=== PATIENT | female | born 1990 | race Caucasian/White ===

== ENCOUNTER → 2017-08-24 | Outpatient (CLI) | payer MEDICARE, OTHER ==
[2016-04-15 22:50] VITALS: BP 174/88
[~2017-08-24] MED LIST: ACET325T9 PO; CALC667C6 PO; DILT240C66 PO; FEXO180T16 PO; FURO40TA4 PO; HYDR-2869 PO; HYDR25TA9 PO; INSU100I13 SQ; INSU100V SQ; LABE100T3 PO; LAMO100T PO; ONDA4TAB10 PO; SODI650T PO; [UNRECOGNIZED DRUG - OTHER]
--- NOTE | 2017-08-24 13:07 | RAD ---
Complete abdominal ultrasound 08/24/2017 Indication: Liver mass. Spot megaly. Comparison study: None available. Discussion: Ultrasound evaluation of the abdomen was performed. Static images are submitted to PACS. Exam is technically limited secondary to patient body habitus. The pancreas is poorly visualized. The aorta and IVC are poorly visualized. The liver is only partially visualized. Superior portions of liver nonvisualized. Portal venous flow appears to be normal direction. The visualized common bile duct is nondilated at 3 mm. The liver is diffusely hyperechoic suggesting hepatic steatosis. The liver is enlarged. Measures at least 21 cm longitudinally. The right kidney is unremarkable in appearance measuring 10.7 cm in length. Left kidney is grossly unremarkable in appearance measuring 11.5 cm in length. The spleen is enlarged measuring 13.2 cm in length. Impression: 1. Hepatomegaly with splenomegaly 2. Probable hepatic steatosis 3. A focal liver lesion is not seen, though evaluation of the liver is significantly limited as described. If concern persists a hepatic protocol MRI may be helpful for further evaluation.
== END | disposition home or self-care (01) ==
LOC: US 09:15
PROVIDERS: ATTEND Internal Medicine Gastroenterology
DX: R16.0 Hepatomegaly, not elsewhere classified (principal); R16.1 Splenomegaly, not elsewhere classified; Z90.49 Acquired absence of other specified parts of digestive tract
CPT/HCPCS: 76700

== ENCOUNTER → 2018-12-01 | Outpatient (CLI) | payer MEDICARE, OTHER ==
[2016-04-15 22:50] VITALS: BP 174/88
[~2018-12-01] MED LIST changes: +HYDR-2145 PO; -HYDR25TA9 PO; -LABE100T3 PO; +LABE100T5 PO
== END | disposition home or self-care (01) ==
LOC: SURG 11:22
PROVIDERS: ATTEND Anesthesiology Pain Medicine
DX: R10.10 Upper abdominal pain, unspecified (principal); G89.4 Chronic pain syndrome; F11.90 Opioid use, unspecified, uncomplicated; E11.9 Type 2 diabetes mellitus without complications; M25.511 Pain in right shoulder; Z90.49 Acquired absence of other specified parts of digestive tract; Z79.899 Other long term (current) drug therapy
CPT/HCPCS: 99214

== ENCOUNTER → 2019-03-02 | Outpatient (CLI) | payer MEDICARE, OTHER ==
[2016-04-15 22:50] VITALS: BP 174/88
== END | disposition home or self-care (01) ==
LOC: SURG 12:51
PROVIDERS: ATTEND Anesthesiology Pain Medicine
DX: G89.4 Chronic pain syndrome (principal); R10.10 Upper abdominal pain, unspecified; M25.511 Pain in right shoulder; M25.512 Pain in left shoulder; F11.90 Opioid use, unspecified, uncomplicated; E11.9 Type 2 diabetes mellitus without complications; Z99.2 Dependence on renal dialysis; Z90.49 Acquired absence of other specified parts of digestive tract; Z79.899 Other long term (current) drug therapy
CPT/HCPCS: 99214

== ENCOUNTER → 2019-07-24 | Outpatient (CLI) | payer MEDICARE, OTHER ==
[2016-04-15 22:50] VITALS: BP 174/88
[~2019-07-24] MED LIST changes: -LAMO100T PO; +LAMO100T8 PO
--- NOTE | 2019-07-24 12:34 | CARD ---
MR#: [id number] Date of Study: 07/24/2019 Ordering Physician: ANA M DAVIDSON, Referring Physician: ANA M DAVIDSON, Tech: Annie Ayers APPROVED REPORT EXAM: Two-dimensional and M-mode echocardiogram with Doppler and color Doppler. Other Information Quality : Average INDICATION LV Function:Diastolic RISK FACTORS Hypertension Hyperlipidemia 2D DIMENSIONS RVDd3.0 (2.9-3.5cm)Left Atrium(2D)3.8 (1.6-4.0cm) IVSd0.7 (0.7-1.1cm)Aortic Root(2D)2.4 (2.0-3.7cm) LVDd4.0 (3.9-5.9cm)LVOT Diameter2.0 (1.8-2.4cm) PWd0.8 (0.7-1.1cm)LVDs3.3 (2.5-4.0cm) FS (%) 18.3 %SV27.4 ml LVEF(%)38.5 (>50%) Aortic Valve AoV Peak Leonel.151.3cm/sAoV VTI33.3cm AO Peak GR.9.2mmHgLVOT Peak Leonel.109.8cm/s LVOT VTI 26.58cmAO Mean GR.5mmHg COLT (VMAX)2.05zq6DLO (VTI)2.59cm2 Mitral Valve MV E Pivceuqa538.5cm/sMV DECEL VABY655wg MV A Jjidooiv73.0cm/sE/A Ratio1.5 Pulmonary Valve PV Peak Qhbvmocu999.6cm/sPV Peak Grad.5mmHg Tricuspid Valve TR P. Qcjndmxv153fq/sRAP AFLDCIFA2dlDy TR Peak Gr.88ddQvQMHU03ipDg Pulmonary Vein S1 Tnggjfpd22.7cm/sD2 Ntgsaurt13.9cm/s LEFT VENTRICLE The left ventricle is normal size. There is normal left ventricular wall thickness. The left ventricu lar systolic function is normal and the ejection fraction is within normal range. EF 55% There is nor mal LV segmental wall motion. The left ventricular diastolic function and filling is normal for age. RIGHT VENTRICLE The right ventricle is normal size. There is normal right ventricular wall thickness. The right ventr icular systolic function is normal. ATRIA The left atrium is borderline dilated. The right atrium size is normal. The interatrial septum is int act with no evidence for an atrial septal defect or patent foramen ovale as noted on 2-D or Doppler i maging. AORTIC VALVE The aortic valve is normal in structure and function. Doppler and Color Flow revealed no significant aortic regurgitation. There is no significant aortic valvular stenosis. MITRAL VALVE The mitral valve is normal in structure and function. There is no evidence of mitral valve prolapse. There is no mitral valve stenosis. Doppler and Color-flow revealed trace mild mitral regurgitation. TRICUSPID VALVE The tricuspid valve is normal in structure and function. Doppler and Color Flow revealed trace tricus pid regurgitation with an estimated PAP of 41 mmHg. There is no tricuspid valve prolapse or vegetatio n. There is no tricuspid valve stenosis. PULMONIC VALVE The pulmonary valve is normal in structure and function. Doppler and Color Flow revealed trace pulmon ic valvular regurgitation. There is no pulmonic valvular stenosis. GREAT VESSELS The aortic root is normal in size. The IVC is normal in size and collapses >50% with inspiration. PERICARDIAL EFFUSION There is no evidence of significant pericardial effusion. Critical Notification Critical Value: No <Conclusion> The left ventricular systolic function is normal and the ejection fraction is within normal range. EF 55% There is normal LV segmental wall motion. Signed by : Ana M Davidson, Electronically Approved : 07/24/2019 12:34:00
== END | disposition home or self-care (01) ==
LOC: ECHO 08:51
PROVIDERS: ATTEND Internal Medicine Cardiovascular Disease
DX: I34.0 Nonrheumatic mitral (valve) insufficiency (principal); I11.0 Hypertensive heart disease with heart failure; I50.30 Unspecified diastolic (congestive) heart failure
CPT/HCPCS: 93306

== ENCOUNTER 2019-10-06 00:28 | Emergency (ER) | payer OTHER, MEDICARE ==
[~2019-10-06] VITALS: Ht 154.9 cm; Wt 67.2 kg
[2019-10-06 00:51] VITALS: BP 153/82
[2019-10-06] MEDS ORDERED: ORPH-16 PO (01:10)
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
[2019-10-06] MEDS ORDERED: ORPHENADRINE CITRATE 60 MG/2 ML VIAL. IM ONE (01:30)
[2019-10-06] MEDS ORDERED: DEXAMETHASONE 4 MG TABLET PO ONE (01:30)
== END 2019-10-06 01:20 | disposition home or self-care (01) ==
LOC: ER 00:28
DX: S30.1XXA Contusion of abdominal wall, initial encounter (principal); R51 Headache; M54.2 Cervicalgia; I12.9 Hypertensive chronic kidney disease with stage 1 through stage 4 chronic kidney disease, or unspecified chronic kidney disease; N18.9 Chronic kidney disease, unspecified; E11.22 Type 2 diabetes mellitus with diabetic chronic kidney disease; Z90.49 Acquired absence of other specified parts of digestive tract; Z98.84 Bariatric surgery status; Z90.710 Acquired absence of both cervix and uterus; Z87.891 Personal history of nicotine dependence; V43.52XA Car driver injured in collision with other type car in traffic accident, initial encounter; Y93.I9 Activity, other involving external motion; Y92.488 Other paved roadways as the place of occurrence of the external cause; Y99.8 Other external cause status
CPT/HCPCS: 96372; 99283; J2360; J8540

== ENCOUNTER → 2019-11-02 | Outpatient (CLI) | payer MEDICARE, OTHER ==
[~2019-11-02] MED LIST changes: +ORPH-16 PO
[2019-11-02 10:42] VITALS: BP 151/78
== END | disposition home or self-care (01) ==
LOC: SURG 10:30
PROVIDERS: ATTEND Anesthesiology Pain Medicine
DX: G89.4 Chronic pain syndrome (principal); R10.9 Unspecified abdominal pain; M25.519 Pain in unspecified shoulder; M25.512 Pain in left shoulder; R10.10 Upper abdominal pain, unspecified; M25.511 Pain in right shoulder; F11.90 Opioid use, unspecified, uncomplicated
CPT/HCPCS: 99214; G0463

== ENCOUNTER 2020-04-02 20:02 | Emergency (ER) | payer MEDICARE, OTHER ==
[~2020-04-02] VITALS: Ht 154.9 cm; Wt 74.1 kg
[2020-04-02 21:30] LABS: BASO % 1 % (0-3); EOS # 0.1 x10^3/uL (0.0-0.7); EOS % 1 % (0-3); HEMOGLOBIN 10.9 g/dL (12.0-15.5); LYMPH # 1.7 x10^3/uL (1.0-4.8); LYMPH % 32 % (24-48); MEAN CORPUSCULAR HEMOGLOBIN 31 pg (25-35); MEAN CORPUSCULAR HGB CONC 34 g/dL (31-37); MEAN CORPUSCULAR VOLUME 91 fL (79-100); MONO # 0.3 x10^3/uL (0.0-1.1); MONO % 5 % (0-9); NEUT # 3.3 x10^3uL (1.8-7.7); NEUT % 60 % (31-73); PLATELET COUNT 207 x10^3/uL (140-400); RED BLOOD COUNT 3.52 x10^6/uL (3.50-5.40); RED CELL DISTRIBUTION WIDTH 12.8 % (11.5-14.5); WHITE BLOOD COUNT 5.4 x10^3/uL (4.0-11.0)
[2020-04-02 21:37] LABS: CALCIUM 6.7 mg/dL (8.5-10.1); CREATININE 6.6 mg/dL (0.6-1.0); GFR 7.4; POTASSIUM 3.5 mmol/L (3.5-5.1)
[2020-04-02 21:45] LABS: ALBUMIN 2.2 g/dL (3.4-5.0); ALBUMIN/GLOBULIN RATIO 0.7 (1.0-1.7); TOTAL BILIRUBIN 0.2 mg/dL (0.2-1.0); TOTAL PROTEIN 5.5 g/dL (6.4-8.2)
--- NOTE | 2020-04-02 21:47 | PHYS DOC ---
Past History Past Medical History: Bipolar, Diabetes, Hypertension, Kidney Infection, Renal Failure Additional Past Medical Histor: stg 5 renal failure Past Surgical History: Cholecystectomy, Gastric Bypass, Hysterectomy Additional Past Surgical Histo: bilateral shoulder repair, Smoking: Quit Greater Than 1 Year Alcohol Use: None Drug Use: None Adult General Chief Complaint Chief Complaint: ABDOMINAL PAIN HPI HPI Patient is a 29 year old female who presents with who presents to the emergency room with mid to right lower abdominal pain. Patient states that she noticed this pea like structure in her abdominal wall and states that she had some pain around this area. She states the pain is more to the center of her abdomen than right over that area. She has had some low-grade fevers. She has chronic nausea but is unchanged. She is not had any vomiting, diarrhea, constipation. She is on peritoneal dialysis which she is not had any difficulty with. Review of Systems Review of Systems General: Denies fever, chills, sweats, fatigue Eyes: Denies drainage, blurred vision, eye redness HENT: Denies rhinorrhea, sore throat, earache Respiratory: Denies cough, shortness of breath, wheezing Cardiac: Denies edema, palpitations, chest pain GI: Reports nausea, abdominal pain MSK: Denies back pain, neck pain Skin: Denies rash, jaundice Neuro: Denies headache, dizziness Psychiatric: Denies SI/HI Current Medications Current Medications Current Medications Medications (Trade) Dose Ordered Sig/Bisi Start Time Stop Time Status Last Admin Dose Admin Iohexol (Omnipaque 240 Mg/ml) 30 ml 1X ONCE 04/02/20 20:45 04/02/20 20:46 DC Allergies Allergies Allergies Coded Allergies Type Severity Reaction Last Updated Verified adhesive Allergy Unknown 11/02/19 Yes lurasidone Allergy Unknown 11/02/19 Yes zolpidem Allergy Unknown 11/02/19 Yes Physical Exam Physical Exam General: Awake, alert, NAD. Well Nourished, well hydrated. Cooperative HEENT: Atraumatic, EOMI, PERRL, airway patent, moist oral mucosa Neck: Supple, trachea midline Respiratory: CTA bilaterally, normal effort, no wheezing/crackles CV: RRR, no murmur, cap refill <2 GI: Soft, nondistended, peritoneal dialysis cath in place on the L, mid lower/RLQ tenderness, small 1 cm cyst like structure in R abdominal wall. MSK: No obvious deformities Skin: Warm, dry, intact Neuro: A&O x3, speech NL, sensory and motor grossly intact, no focal deficits Psych: Normal affect, normal mood, not suicidal or homicidal Current Patient Data Lab Results Laboratory Tests Test 04/02/20 21:10 White Blood Count 5.4 x10^3/uL (4.0-11.0) Red Blood Count 3.52 x10^6/uL (3.50-5.40) Hemoglobin 10.9 g/dL (12.0-15.5) L Hematocrit 32.0 % (36.0-47.0) L Mean Corpuscular Volume 91 fL (79-100) Mean Corpuscular Hemoglobin 31 pg (25-35) Mean Corpuscular Hemoglobin Concent 34 g/dL (31-37) Red Cell Distribution Width 12.8 % (11.5-14.5) Platelet Count 207 x10^3/uL (140-400) Neutrophils (%) (Auto) 60 % (31-73) Lymphocytes (%) (Auto) 32 % (24-48) Monocytes (%) (Auto) 5 % (0-9) Eosinophils (%) (Auto) 1 % (0-3) Basophils (%) (Auto) 1 % (0-3) Neutrophils # (Auto) 3.3 x10^3uL (1.8-7.7) Lymphocytes # (Auto) 1.7 x10^3/uL (1.0-4.8) Monocytes # (Auto) 0.3 x10^3/uL (0.0-1.1) Eosinophils # (Auto) 0.1 x10^3/uL (0.0-0.7) Basophils # (Auto) 0.0 x10^3/uL (0.0-0.2) EKG EKG [] Radiology/Procedures Radiology/Procedures [] Course & Med Decision Making Course & Med Decision Making Pertinent Labs and Imaging studies reviewed. (See chart for details) Patient is a 29-year-old female who presents to the emergency room with lower abdominal pain. Patient does not have signs of peritonitis on exam and does not need fluid tested at this time. It is unclear whether the cystlike structure is what is causing her pain. It feels benign on exam and is easily movable. CT abdomen pelvis and basic labs will be ordered to evaluate for the cause of her pathology. Dragon Disclaimer Dragon Disclaimer This electronic medical record was generated, in whole or in part, using a voice recognition dictation system. Departure Departure: Impression: Primary Impression: Abdominal pain Disposition: HOME/RESIDENCE PRIOR TO ADM Condition: STABLE Referrals: SUPRIYA MATHEW (PCP) Patient Instructions: Abdominal Pain Scripts Cephalexin (KEFLEX) 500 Mg Capsule 1 CAP PO BID for UTI for 7 Days, #14 CAP 0 Refills Prov: WALTER CONNELLY MD 04/02/20 Justification of Admission: Justification of Admission: Justification of Admission Dx: No WALTER CONNELLY MD Apr 02, 2020 21:47
[2020-04-02] MEDS: IOHEXOL 240 MG/ML 50ML VIAL. PO ONE (21:54)
--- NOTE | 2020-04-02 22:14 | RAD ---
Exam: CT of abdomen and pelvis without contrast INDICATION: Abdominal pain with right-sided palpable abdominal mass TECHNIQUE: Sequential axial images through the abdomen and pelvis obtained without IV contrast. Sagittal and coronal reformatted images were reconstructed from the axial data and reviewed. Comparisons: None FINDINGS: Heart size is normal. No pericardial effusion. Visualized lung bases are clear. No pleural effusion. Evaluation of solid organs limited secondary to noncontrast technique. Liver, pancreas and adrenals are unremarkable. Gallbladder surgically absent. Spleen is enlarged measuring 16.2 cm in long axis. No perinephric inflammation or hydronephrosis. No renal or ureteral calculi. Bladder is decompressed not well evaluated. Uterus is not enlarged. No abnormal adnexal mass. Large and small bowel are unremarkable. Appendix is not identified. Moderate amount of free fluid noted within the abdomen. No free air. No obstruction. There is a peritoneal dialysis catheter seen coiled in the pelvis. Abdominal aorta has a normal course and caliber. No enlarged abdominal lymph nodes are identified. No suspicious osseous lesions or acute fractures. IMPRESSION: 1. Small to moderate amount of free fluid in the abdomen with peritoneal dialysis catheter seen in the pelvis. 2. No evidence for this identified within the abdomen or pelvis. Exposure: One or more of the following in the visualized dose reduction techniques were utilized for this examination: 1. Automated exposure control 2. Adjustment of the MA and/or KV according to patient size 3. Use of iterative of reconstructive technique Electronically signed by: Seda Staples MD (04/02/2020 10:11 PM) [id number]
[2020-04-02 23:10] LABS: CLARITY,URINE HAZY; COLOR,URINE YELLOW
[2020-04-02 23:11] LABS: BACTERIA,URINE FEW /HPF (0-FEW); BILIRUBIN,URINE NEG (NEG); GLUCOSE,URINE 500 mg/dL (NEG); NITRITE,URINE NEG (NEG); RBC,URINE OCC /HPF (0-2); SQUAMOUS EPITHELIAL CELL,UR FEW /LPF; UROBILINOGEN,URINE 0.2 mg/dL (0.2 mg/dL); WBC,URINE 20-40 /HPF (0-4); YEAST,URINE PRESENT /HPF
[2020-04-02] MEDS ORDERED: CEPH-264 PO (23:44)
[2020-04-02] MEDS ORDERED: HEPARIN PF 500 UNIT/5 ML DISP.SYRIN. ONE (23:46)
[2020-04-02 23:50] VITALS: BP 135/79
[2020-04-02] MEDS: HEPARIN PF 500 UNIT/5 ML DISP.SYRIN. IVP ONE (23:50)
== END 2020-04-02 23:55 | disposition home or self-care (01) ==
LOC: ER 20:02
DX: R10.31 Right lower quadrant pain (principal); R11.0 Nausea; F31.9 Bipolar disorder, unspecified; E11.9 Type 2 diabetes mellitus without complications; I10 Essential (primary) hypertension; E11.22 Type 2 diabetes mellitus with diabetic chronic kidney disease; I12.9 Hypertensive chronic kidney disease with stage 1 through stage 4 chronic kidney disease, or unspecified chronic kidney disease; N18.9 Chronic kidney disease, unspecified; Z90.89 Acquired absence of other organs; Z90.710 Acquired absence of both cervix and uterus; Z98.84 Bariatric surgery status; Z87.891 Personal history of nicotine dependence; Z88.8 Allergy status to other drugs, medicaments and biological substances
CPT/HCPCS: 36415; 74176; 80053; 81001; 81025; 85025; 87086; 96374; 99285; Q9966

== ENCOUNTER 2020-07-23 11:15 | Emergency (ER) | payer MEDICARE, OTHER ==
[~2020-07-23] VITALS: Ht 154.9 cm; Wt 73.6 kg
[~2020-07-23 11:15] MED LIST changes: +CEPH-264 PO
[2020-07-23] MEDS ORDERED: IV NORMAL SALINE 500ML 500 ML IV ONE (11:45)
[2020-07-23] MEDS ORDERED: VANCOMYCIN PER PHARMACY MC ONE (11:45)
[2020-07-23] MEDS ORDERED: PIPERACILLIN/TAZOBACTAM 4.5 GM in IV NORMAL SALINE 50ML 50 ML IV ONE (11:45)
--- NOTE | 2020-07-23 11:58 | EKG ---
[address] [address] Test Date: 2020-07-23 Test Time: 11:54:18 Pat Name: ANGÉLICA PEÑALOZA Department: Room: Gender: F Bilingual Hr Generalist: : 1990 Requested By: SYLVIE CASTRO Order Number: [id number] Reading MD: Measurements Intervals Cameron Rate: 111 P: 41 WY: 150 QRS: 60 QRSD: 84 T: 35 QT: 318 QTc: 436 Interpretive Statements SINUS TACHYCARDIA OTHERWISE NORMAL ECG RI6.02 No previous ECG available for comparison
[2020-07-23] MEDS ORDERED: VANCOMYCIN 2 GM in IV NORMAL SALINE 500ML 500 ML IV ONE (12:00)
[2020-07-23] MEDS ORDERED: IOHEXOL 300 MG/ML 75 ML VIAL. IV ONE (12:00)
--- NOTE | 2020-07-23 12:30 | RAD ---
CT HEAD INDICATION: Reason: fall / Spl. Instructions: / History: COMPARISON: 04/15/2016. Exposure: One or more of the following individualized dose reduction techniques were utilized for this examination: 1. Automated exposure control 2. Adjustment of the mA and/or kV according to patient size 3. Use of iterative reconstruction technique TECHNIQUE: 5 mm contiguous axial images were obtained from the skull base to the vertex in both bone and soft tissue algorithm. FINDINGS: No abnormal attenuation within the brain parenchyma. No evidence of acute intracranial hemorrhage. No extra-axial fluid collections. No mass effect or midline shift. Ventricular size is appropriate. Basal cisterns are patent. No fractures identified.Kulkarni-white differentiation is preserved.Globes and orbits are within normal limits. Paranasal sinuses and mastoid air cells are clear. IMPRESSION: No acute intracranial findings. Electronically signed by: Gabriel Cam MD (07/23/2020 12:27 PM) [id number]
--- NOTE | 2020-07-23 12:41 | PHYS DOC ---
Past History Past Medical History: Anxiety, Diabetes, Hypertension, Renal Failure Additional Past Medical Histor: stg 5 renal failure Past Surgical History: Cholecystectomy, Hysterectomy, Other Additional Past Surgical Histo: LEFT CHEST PORT Smoking: Quit Greater Than 1 Year Alcohol Use: None Drug Use: None General Adult EDM: Chief Complaint: HYPOTENSION HPI: HPI: 30-year-old female past medical history of ESRD (PD daily), diabetes) anemia and hyperlipidemia, presents to the ED from [facility] dialysis for concern for hyp otension (pt reports she went there for labs). I spoke with cardiology Dr. Davidson who called me -pt was admitted 1 week ago to [facility] with an unremarkable echo for hypotension. Patient does have a history of orthostatic hypotension. 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 Ulloa who reported her dry weight was 6 kg increased from prior. Patient has a longstanding hi story of hypotension and has been on midodrine. Dr. Davidson recommended considering adrenal insufficiency work-up. In ED patient complains of frequent falls and dizziness. Reports she lives alone and is not anticoagulants. Pt does c/o left sided abdominal pain. Review of Systems: Review of Systems: Constitutional: Denies fever or chills Eyes: Denies change in visual acuity HENT: Denies nasal congestion or sore throat Respiratory: Denies cough or shortness of breath Cardiovascular: Denies chest pain or edema GI: Denies nausea, vomiting, bloody stools or diarrhea : Denies dysuria -carloz minimal urine Musculoskeletal: Denies back pain or joint pain Integument: Denies rash Neurologic: Denies headache, neck stiffness, focal weakness or sensory changes Endocrine: Denies polyuria or polydipsia Lymphatic: Denies swollen glands Psychiatric: Denies depression or anxiety Current Medications: Current Meds: Current Medications Medications (Trade) Dose Ordered Sig/Bisi Start Time Stop Time Status Last Admin Dose Admin Iohexol (Omnipaque 300 Mg/ml) 75 ml 1X ONCE 07/23/20 12:00 07/23/20 12:01 DC 07/23/20 12:36 75 ML Piperacillin Sod/ Tazobactam Sod 4.5 gm/Sodium Chloride 50 ml @ 100 mls/hr 1X ONCE 07/23/20 11:45 07/23/20 12:14 DC Sodium Chloride 500 ml @ 0 mls/hr 1X ONCE 07/23/20 11:45 07/23/20 11:47 DC Vancomycin HCl (Vanco Per Pharmacy) 1 each 1X ONCE 07/23/20 11:45 07/23/20 11:47 DC Vancomycin HCl 2 gm/Sodium Chloride 500 ml @ 250 mls/hr 1X ONCE 07/23/20 12:00 07/23/20 13:59 Allergies: Allergies: Allergies Coded Allergies Type Severity Reaction Last Updated Verified adhesive Allergy Unknown 07/23/20 Yes lurasidone Allergy Unknown 07/23/20 Yes zolpidem Allergy Unknown 07/23/20 Yes Physical Exam: PE: Constitutional: fatuged/weak appearing, hypotensive, afebrile HENT: Normocephalic, atraumatic, Eyes: EOMI, conjunctiva normal, no discharge. [] Neck: Normal range of motion, supple, Cardiovascular: tachcardic, s1/2 intact Lungs & Thorax: Speaking in full sentences, bilateral equal chest rise Abdomen: soft, luq/llq ttp, abdominal bruising-recent sq heparin? Skin: Warm, dry, no erythema, no rash. [] Back: No tenderness, no CVA tenderness. [] Extremities: No tenderness, no cyanosis, no clubbing, ROM intact, no edema. [] Neurologic: normal motor function, normal sensory function, no focal deficits noted. [] Psychologic: Affect normal, judgement normal, mood normal. [] Current Patient Data: Vital Signs: Vital Signs Date Time Temp Pulse Resp B/P (MAP) Pulse Ox O2 Delivery O2 Flow Rate FiO2 07/23/20 11:34 114 13 87/23 (44) 95 Room Air 07/23/20 11:25 98.5 EKG: EKG: Sinus tachycardia 100 bpm, no axis deviation, normal intervals, no T wave inversions, no ST elevations or ST depressions Radiology/Procedures: Radiology/Procedures: IMAGING REPORT Signed PATIENT: ANGÉLICA PEÑALOZA CACCOUNT: [id number] : 1990 LOCATION: ER AGE: 30 SEX: F EXAM STATUS: REG ER ORD. PHYSICIAN: KEARA CASTRO DO REASON: fall PROCEDURE: CT HEAD WO CONTRAST CT HEAD INDICATION: Reason: fall / Spl. Instructions: / History: COMPARISON: 04/15/2016. Exposure: One or more of the following individualized dose reduction techniques were utilized for this examination: 1. Automated exposure control 2. Adjustment of the mA and/or kV according to patient size 3. Use of iterative reconstruction technique TECHNIQUE: 5 mm contiguous axial images were obtained from the skull base to the vertex in both bone and soft tissue algorithm. FINDINGS: No abnormal attenuation within the brain parenchyma. No evidence of acute intracranial hemorrhage. No extra-axial fluid collections. No mass effect or midline shift. Ventricular size is appropriate. Basal cisterns are patent. No fractures identified.Kulkarni-white differentiation is preserved.Globes and orbits are within normal limits. Paranasal sinuses and mastoid air cells are clear. IMPRESSION: No acute intracranial findings. Electronically signed by: Gabriel Cam MD (07/23/2020 12:27 PM) [id number] DICTATED AND SIGNED BY: GABRIEL CAM MD DATE: 07/23/20 1227 CC: KEARA CASTRO DO; SUPRIYA MATHEW ~ IMAGING REPORT Signed PATIENT: ANGÉLICA PEÑALOZAUNT: [id number] : 1990 LOCATION: ER AGE: 30 SEX: F EXAM STATUS: REG ER ORD. PHYSICIAN: KEARA CASTRO DO REASON: HYPOTENSION PROCEDURE: PORTABLE CHEST 1V Single view of the chest. 07/23/2020 11:36 AM Indication: Reason: HYPOTENSION / Spl. Instructions: / History: Comparison: Chest radiograph September 21, 2016 Findings: Lung volumes are low. Left basilar discoid atelectasis noted. There is a left-sided port with tip in the proximal right atrium, possibly augmented decreased depth of inspiration. There is no pneumothorax pleural effusion, or focal infiltrate. No acute osseous changes are identified. IMPRESSION: Low lung volumes there is left basilar discoid atelectasis. No other acute cardiopulmonary process is seen. Electronically signed by: Bib Esteban MD (07/23/2020 12:51 PM) [id number] DICTATED AND SIGNED BY: BIB ESTEBAN MD DATE: 07/23/20 1251 CC: KEARA CASTRO DO; SUPRIYA MATHEW ~ IMAGING REPORT Signed PATIENT: ANGÉLICA PEÑALOZAUNT: [id number] : 1990 LOCATION: ER AGE: 30 SEX: F EXAM STATUS: REG ER ORD. PHYSICIAN: KEARA CASTRO DO REASON: fall PROCEDURE: CT ABD PELV W/ IV CONTRST ONLY CT ABD PELV W/ IV CONTRST ONLY History: fall, pain Comparison: 07/11/2020 Technique: After administration of intravenous contrast, helical CT of the abdomen and pelvis was performed from the lung bases through the ischial tuberosities. Coronal and sagittal reconstructions were obtained. One or more of the following dose reduction techniques were utilized: Automated exposure control (AEC), Adjustment of mA and/or kV according to patient size, Use of iterative reconstruction technique such as ASiR, CT scan done according to ALARA and image gently/image wisely Abdomen Findings: The visualized lung bases are clear. Moderate amount of abdominopelvic free fluid. Peritoneal dialysis catheter in place. Focal fatty infiltration along the falciform ligament. The liver pancreas, and bilateral adrenal glands are otherwise normal. Cholecystectomy. Few small areas of hypoenhancement along the margins of the spleen with linear morphology. No subcapsular hematoma or adjacent high attenuation fluid to suggest active hemorrhage. Symmetric renal enhancement. There is no focal renal mass. There is no hydronephrosis. Postsurgical changes of gastric bypass. Normal caliber large and small bowel. Appendix is normal. There is no mesenteric or retroperitoneal adenopathy. The abdominal aorta is normal in caliber. Atherosclerotic vascular calcifications. Pelvis Findings: Intermediate density fluid within the bladder (45 Hounsfield units). Hysterectomy. There is no pelvic or inguinal adenopathy. There is no acute bony abnormality. IMPRESSION: 1. There are a few small areas of hypoenhancement along the margins of the spleen with linear morphology concerning for splenic lacerations, given history of trauma. No subcapsular hematoma or adjacent high attenuation fluid to suggest active hemorrhage. 2. There is intermediate density fluid within the bladder, nonspecific but may represent blood products. 3. Moderate abdominopelvic low-attenuation free fluid with peritoneal dialysis catheter in place. Electronically signed by: Cindi Jones MD (07/23/2020 1:14 PM) [id number] DICTATED AND SIGNED BY: CINDI JONES MD DATE: 07/23/20 1314 CC: KEARA CASTRO DO; SUPRIYA MATHEW ~ Heart Score: Risk Factors: Risk Factors: DM, Current or recent (<one month) smoker, HTN, HLP, family history of CAD, obesity. Risk Scores: Score 0 - 3: 2.5% MACE over next 6 weeks - Discharge Home Score 4 - 6: 20.3% MACE over next 6 weeks - Admit for Clinical Observation Score 7 - 10: 72.7% MACE over next 6 weeks - Early Invasive Strategies Course & Med Decision Making: Course & Med Decision Making Pertinent Labs and Imaging studies reviewed. (See chart for details) Concern for hypotension in the setting of frequent falls with CT imaging concerning for splenic laceration, no active hemorrhage. Patient received 300 cc of fluid in ED with antibiotics, map now 85. H/H wnl. On repeat abdominal exam, pt with no luq pain. Adrenal labs pending. [facility], accepted by Dr. Foote for further medical management (pt requesting [facility]-both hospitals full due to covid 19 pandemic). I have spoken with the patient and/or caregivers. I have explained the patient's condition, diagnosis and treatment plan based on the information available to me at this time. I have answered the patient's and/or caregivers questions and answered any concerns. The patient and/or caregivers have as good an understanding of the patient's diagnosis, condition and treatment plan as can be expected at this point. The patient has been stabilized within the capability of the emergency department. The patient will be transported for further care and management or will be moved to an observation or inpatient service. I have communicated with the staff or medical practitioner taking over this patient's care. Critical Care: Authorized and Performed by: Keara Castro DO Total critical care time: approximately 45 minutes Due to a high probability of clinically significant, life threatening deterioration, the patient required my highest level of preparedness to intervene emergently and I personally spent this critical care time directly and personally managing the patient. This critical care time included obtaining a history; examining the patient; pulse oximetry; ventilator management if necessary; ordering and review of studies; arranging urgent treatment with development of a management plan; evaluation of patient's response to treatment; frequent reassessment; discussion with patient/family; and, discussions with other providers. This critical care time was performed to assess and manage the high probability of imminent, life-threatening deterioration that could result in multi-organ failure. It was exclusive of separately billable procedures and treating other patients and teaching time. Please see MDM section and the rest of the note for further information on patient assessment and treatment. Dragon Disclaimer: Dragon Disclaimer: This electronic medical record was generated, in whole or in part, using a voice recognition dictation system. Departure Departure: Impression: Primary Impression: Hypotension Additional Impressions: UTI (urinary tract infection) Splenic laceration Disposition: 05 DC/TRF OTHER TYPE INSTITUTI (to [facility]) Admitting Physician: Other (Dr. Foote) Condition: GUARDED Referrals: SUPRIYA MATHEW (PCP) EKARA CASTRO DO Jul 23, 2020 12:41
--- NOTE | 2020-07-23 12:54 | RAD ---
Single view of the chest. 07/23/2020 11:36 AM Indication: Reason: HYPOTENSION / Spl. Instructions: / History: Comparison: Chest radiograph September 21, 2016 Findings: Lung volumes are low. Left basilar discoid atelectasis noted. There is a left-sided port with tip in the proximal right atrium, possibly augmented decreased depth of inspiration. There is no pneumothorax pleural effusion, or focal infiltrate. No acute osseous changes are identified. IMPRESSION: Low lung volumes there is left basilar discoid atelectasis. No other acute cardiopulmonary process is seen. Electronically signed by: Bib Dudley MD (07/23/2020 12:51 PM) [id number]
[2020-07-23 12:58] LABS: BASO # 0.1 x10^3/uL (0.0-0.2); BASO % 1 % (0-3); EOS # 0.1 x10^3/uL (0.0-0.7); EOS % 1 % (0-3); HEMATOCRIT 37.1 % (36.0-47.0); HEMOGLOBIN 12.1 g/dL (12.0-15.5); LYMPH # 1.9 x10^3/uL (1.0-4.8); LYMPH % 17 % (24-48); MEAN CORPUSCULAR HEMOGLOBIN 30 pg (25-35); MEAN CORPUSCULAR HGB CONC 33 g/dL (31-37); MEAN CORPUSCULAR VOLUME 93 fL (79-100); MONO # 0.6 x10^3/uL (0.0-1.1); MONO % 5 % (0-9); NEUT # 8.2 x10^3uL (1.8-7.7); NEUT % 76 % (31-73); PLATELET COUNT 326 x10^3/uL (140-400); RED CELL DISTRIBUTION WIDTH 13.5 % (11.5-14.5); WHITE BLOOD COUNT 10.8 x10^3/uL (4.0-11.0)
[2020-07-23 13:08] LABS: CALCIUM 8.1 mg/dL (8.5-10.1); CREATININE 11.6 mg/dL (0.6-1.0); GFR 3.8; POTASSIUM 4.3 mmol/L (3.5-5.1)
[2020-07-23 13:12] LABS: PREG TEST PT QUAL NEGATIVE (NEG)
[2020-07-23] MEDS ORDERED: IV NORMAL SALINE 50ML 50 ML ONE (13:12)
[2020-07-23] MEDS ORDERED: PIPERACILLIN/TAZOBACTAM 4.5 GM VIAL IV ONE (13:12)
--- NOTE | 2020-07-23 13:17 | RAD ---
CT ABD PELV W/ IV CONTRST ONLY History: fall, pain Comparison: 07/11/2020 Technique: After administration of intravenous contrast, helical CT of the abdomen and pelvis was performed from the lung bases through the ischial tuberosities. Coronal and sagittal reconstructions were obtained. One or more of the following dose reduction techniques were utilized: Automated exposure control (AEC), Adjustment of mA and/or kV according to patient size, Use of iterative reconstruction technique such as ASiR, CT scan done according to ALARA and image gently/image wisely Abdomen Findings: The visualized lung bases are clear. Moderate amount of abdominopelvic free fluid. Peritoneal dialysis catheter in place. Focal fatty infiltration along the falciform ligament. The liver pancreas, and bilateral adrenal glands are otherwise normal. Cholecystectomy. Few small areas of hypoenhancement along the margins of the spleen with linear morphology. No subcapsular hematoma or adjacent high attenuation fluid to suggest active hemorrhage. Symmetric renal enhancement. There is no focal renal mass. There is no hydronephrosis. Postsurgical changes of gastric bypass. Normal caliber large and small bowel. Appendix is normal. There is no mesenteric or retroperitoneal adenopathy. The abdominal aorta is normal in caliber. Atherosclerotic vascular calcifications. Pelvis Findings: Intermediate density fluid within the bladder (45 Hounsfield units). Hysterectomy. There is no pelvic or inguinal adenopathy. There is no acute bony abnormality. IMPRESSION: 1. There are a few small areas of hypoenhancement along the margins of the spleen with linear morphology concerning for splenic lacerations, given history of trauma. No subcapsular hematoma or adjacent high attenuation fluid to suggest active hemorrhage. 2. There is intermediate density fluid within the bladder, nonspecific but may represent blood products. 3. Moderate abdominopelvic low-attenuation free fluid with peritoneal dialysis catheter in place. Electronically signed by: Tomer Siegel MD (07/23/2020 1:14 PM) [id number]
[2020-07-23 13:26] LABS: ALBUMIN 2.2 g/dL (3.4-5.0); ALBUMIN/GLOBULIN RATIO 0.5 (1.0-1.7); TOTAL BILIRUBIN 0.4 mg/dL (0.2-1.0); TOTAL PROTEIN 6.6 g/dL (6.4-8.2)
[2020-07-23 14:18] LABS: AMPHETAMINE/METHAMPHETAMINE NEG (NEG); BARBITURATES NEG (NEG); BENZODIAZEPINES NEG (NEG); CANNABINOIDS NEG (NEG); COCAINE NEG (NEG); METHADONE NEG (NEG); OPIATES POS (NEG); PHENCYCLIDINE NEG (NEG)
[2020-07-23 14:39] LABS: BACTERIA,URINE FEW /HPF (0-FEW); BILIRUBIN,URINE NEG (NEG); CLARITY,URINE HAZY; COLOR,URINE AMBER; GLUCOSE,URINE NEG (NEG); NITRITE,URINE POS (NEG); UROBILINOGEN,URINE 0.2 mg/dL (0.2 mg/dL)
[2020-07-23 14:40] LABS: AMORPHOUS SEDIMENT,UR PRESENT /HPF; SQUAMOUS EPITHELIAL CELL,UR OCC /LPF; YEAST,URINE PRESENT /HPF
[2020-07-23] MEDS ORDERED: ONDANSETRON PF 4 MG/2 ML VIAL. IVP ONE (16:30)
[2020-07-23] MEDS ORDERED: HYDROmorphone PF 1 MG/ML DISP.SYRIN IV/SQ PRN (16:30)
[2020-07-23 18:55] VITALS: BP 146/84
== END 2020-07-23 18:55 | disposition short-term general hospital (02) ==
LOC: ER 11:15
DX: S36.039A Unspecified laceration of spleen, initial encounter (principal); I95.9 Hypotension, unspecified; N39.0 Urinary tract infection, site not specified; E11.22 Type 2 diabetes mellitus with diabetic chronic kidney disease; I12.0 Hypertensive chronic kidney disease with stage 5 chronic kidney disease or end stage renal disease; N18.6 End stage renal disease; Z99.2 Dependence on renal dialysis; Z87.891 Personal history of nicotine dependence; Z86.2 Personal history of diseases of the blood and blood-forming organs and certain disorders involving the immune mechanism; E78.5 Hyperlipidemia, unspecified; Z88.8 Allergy status to other drugs, medicaments and biological substances; W18.39XA Other fall on same level, initial encounter; Y93.89 Activity, other specified; Y92.89 Other specified places as the place of occurrence of the external cause; Y99.8 Other external cause status; Z79.899 Other long term (current) drug therapy
CPT/HCPCS: 36415; 70450; 71045; 74177; 80053; 80307; 81001; 82024; 82533; 82550; 83605; 83690; 84244; 84484; 84703; 85025; 85610; 85730; 87040; 87086; 87106; 93005; 96365; 96366; 96367; 96375; 99285; J1170; J2405; J2543; J3370; J7040; Q9967

== ENCOUNTER 2020-08-05 12:33 | Emergency (ER) | payer MEDICARE, OTHER ==
[~2020-08-05] VITALS: Ht 185.4 cm; Wt 78.0 kg
[2020-08-05 13:52] LABS: CREATININE 11.7 mg/dL (0.6-1.0); GFR 3.8; POTASSIUM 4.3 mmol/L (3.5-5.1)
--- NOTE | 2020-08-05 14:02 | RAD ---
EXAM: CHEST ONE VIEW. HISTORY: Shortness of breath. COMPARISON: 07/23/2020. FINDINGS: A frontal view of the chest is obtained. A left-sided port catheter has its tip in the superior cavoatrial junction. The inspiration is small. There are mild airspace infiltrates in the left upper lobe and both perihilar regions. There is no pneumothorax or pleural effusion. The heart is not enlarged. IMPRESSION: 1. Left upper lobe and perihilar infiltrates. Electronically signed by: Kristen Colon MD (08/05/2020 1:59 PM) [facility]
[2020-08-05 14:04] LABS: ALBUMIN 1.7 g/dL (3.4-5.0); ALBUMIN/GLOBULIN RATIO 0.5 (1.0-1.7); TOTAL BILIRUBIN 0.4 mg/dL (0.2-1.0)
[2020-08-05 14:09] LABS: BASO % 0 % (0-3); EOS % 0 % (0-3); HEMATOCRIT 30.7 % (36.0-47.0); HEMOGLOBIN 9.9 g/dL (12.0-15.5); LYMPH # 0.6 x10^3/uL (1.0-4.8); LYMPH % 11 % (24-48); MEAN CORPUSCULAR HEMOGLOBIN 29 pg (25-35); MEAN CORPUSCULAR HGB CONC 32 g/dL (31-37); MEAN CORPUSCULAR VOLUME 91 fL (79-100); MONO # 0.2 x10^3/uL (0.0-1.1); MONO % 3 % (0-9); NEUT # 4.5 x10^3uL (1.8-7.7); NEUT % 86 % (31-73); PLATELET COUNT 227 x10^3/uL (140-400); RED BLOOD COUNT 3.37 x10^6/uL (3.50-5.40); RED CELL DISTRIBUTION WIDTH 13.5 % (11.5-14.5); WHITE BLOOD COUNT 5.2 x10^3/uL (4.0-11.0)
[2020-08-05] MEDS ORDERED: DEXAMETHASONE SOD PHOS 10 MG/ML VIAL. IV ONE (14:30)
[2020-08-05] MEDS ORDERED: IV NORMAL SALINE 50ML 50 ML ONE (15:12)
[2020-08-05] MEDS ORDERED: cefTRIAXone SODIUM 1 GM VIAL ONE (15:12)
--- NOTE | 2020-08-05 15:45 | PHYS DOC ---
Past History Past Medical History: Anxiety, Diabetes, Hypertension, Renal Failure Additional Past Medical Histor: stg 5 renal failure Past Surgical History: Cholecystectomy, Hysterectomy, Other Additional Past Surgical Histo: LEFT CHEST PORT Smoking: Quit Greater Than 1 Year Alcohol Use: None Drug Use: None Adult General Chief Complaint Chief Complaint: SHORTNESS OF BREATH HPI HPI Patient is a 30-year-old female with past medical history of diabetes and end- stage renal disease who presents to the emergency room after having hypoxia at home. Patient was diagnosed with Covid earlier this week and has spent several days in [place]. She was discharged yesterday. Home health came by today and her pulse ox was 70% while she was up and walking. They called an ambulance to bring her here. Patient states that she feels generally weak and is having a hard time walking. She feels short of breath. She is due for peritoneal dialysis tomorrow. She is having cough, body aches, fevers, chills, sweats. She denies any abdominal symptoms. Review of Systems Review of Systems Complete ROS is negative unless otherwise documented in HPI Current Medications Current Medications Current Medications Medications (Trade) Dose Ordered Sig/Bisi Start Time Stop Time Status Last Admin Dose Admin Ceftriaxone Sodium 1 gm/ Sodium Chloride 50 ml @ 100 mls/hr 1X ONCE 08/05/20 14:15 08/05/20 14:44 DC Ceftriaxone Sodium (Rocephin) 1 gm STK-MED ONCE 08/05/20 15:12 08/05/20 15:13 DC Dexamethasone Sodium Phosphate (Decadron) 10 mg 1X ONCE 08/05/20 14:30 08/05/20 14:31 DC Sodium Chloride 50 ml @ As Directed STK-MED ONCE 08/05/20 15:12 08/05/20 15:12 DC Allergies Allergies Allergies Coded Allergies Type Severity Reaction Last Updated Verified adhesive Allergy Unknown 07/23/20 Yes lurasidone Allergy Unknown 07/23/20 Yes zolpidem Allergy Unknown 07/23/20 Yes Physical Exam Physical Exam General: Awake, alert, ill-appearing HEENT: Atraumatic, EOMI, PERRL, airway patent, moist oral mucosa Neck: Supple, trachea midline Respiratory: Decreased breath sounds bilaterally with diffuse crackles, normal effort CV: Tachycardic, no murmur, cap refill <2 GI: Soft, nondistended, nontender, no masses, peritoneal dialysis catheter in place MSK: No obvious deformities Skin: Warm, dry, intact Neuro: A&O x3, speech NL, sensory and motor grossly intact, no focal deficits Psych: Normal affect, normal mood, not suicidal or homicidal Current Patient Data Vital Signs Vital Signs Date Time Temp Pulse Resp B/P (MAP) Pulse Ox O2 Delivery O2 Flow Rate FiO2 08/05/20 12:35 101.0 104 21 103/58 (73) 90 Room Air Lab Results Laboratory Tests Test 08/05/20 13:05 White Blood Count 5.2 x10^3/uL (4.0-11.0) Red Blood Count 3.37 x10^6/uL (3.50-5.40) L Hemoglobin 9.9 g/dL (12.0-15.5) L Hematocrit 30.7 % (36.0-47.0) L Mean Corpuscular Volume 91 fL (79-100) Mean Corpuscular Hemoglobin 29 pg (25-35) Mean Corpuscular Hemoglobin Concent 32 g/dL (31-37) Red Cell Distribution Width 13.5 % (11.5-14.5) Platelet Count 227 x10^3/uL (140-400) Neutrophils (%) (Auto) 86 % (31-73) H Lymphocytes (%) (Auto) 11 % (24-48) L Monocytes (%) (Auto) 3 % (0-9) Eosinophils (%) (Auto) 0 % (0-3) Basophils (%) (Auto) 0 % (0-3) Neutrophils # (Auto) 4.5 x10^3uL (1.8-7.7) Lymphocytes # (Auto) 0.6 x10^3/uL (1.0-4.8) L Monocytes # (Auto) 0.2 x10^3/uL (0.0-1.1) Eosinophils # (Auto) 0.0 x10^3/uL (0.0-0.7) Basophils # (Auto) 0.0 x10^3/uL (0.0-0.2) Sodium Level 132 mmol/L (136-145) L Potassium Level 4.3 mmol/L (3.5-5.1) Chloride Level 94 mmol/L (98-107) L Carbon Dioxide Level 22 mmol/L (21-32) Anion Gap 16 (6-14) H Blood Urea Nitrogen 64 mg/dL (7-20) H Creatinine 11.7 mg/dL (0.6-1.0) H Estimated GFR (Cockcroft-Gault) 3.8 BUN/Creatinine Ratio 5 (6-20) L Glucose Level 97 mg/dL (70-99) Calcium Level 7.0 mg/dL (8.5-10.1) L Total Bilirubin 0.4 mg/dL (0.2-1.0) Aspartate Amino Transferase (AST) 67 U/L (15-37) H Alanine Aminotransferase (ALT) 78 U/L (14-59) H Alkaline Phosphatase 137 U/L (46-116) H Troponin I Quantitative < 0.017 ng/mL (0-0.055) KC-Nhs-E-Type Natriuretic Peptide 6314 pg/mL (0-124) H Total Protein 5.0 g/dL (6.4-8.2) L Albumin 1.7 g/dL (3.4-5.0) L Albumin/Globulin Ratio 0.5 (1.0-1.7) L EKG EKG [] Radiology/Procedures Radiology/Procedures [] Heart Score Risk Factors: Risk Factors: DM, Current or recent (<one month) smoker, HTN, HLP, family hi story of CAD, obesity. Risk Scores: Risk Factors: DM, Current or recent (<one month) smoker, HTN, HLP, family history of CAD, obesity. Course & Med Decision Making Course & Med Decision Making Pertinent Labs and Imaging studies reviewed. (See chart for details) Patient is 30-year-old female with known coronavirus who presents to the emergency room with hypoxia. Patient is requiring 3 L of oxygen at this time. She appears very comfortable on this at rest. Covid labs were ordered and patient was given Decadron. X-ray does show an infiltrate and patient was started on Rocephin. Patient will need dialysis tomorrow and we are unable to do this here at [facility]. She will need to be transferred out to a place that has nephrology. She has requested [facility] as that is where her vocational rehabilitation technician is. I have discussed the case with [facility] who will admit her for hypoxia with coronavirus. Dragon Disclaimer Dragon Disclaimer This electronic medical record was generated, in whole or in part, using a voice recognition dictation system. Departure Departure: Impression: Primary Impression: 2019 novel coronavirus detected Additional Impressions: Respiratory failure with hypoxia ESRD (end stage renal disease) Pneumonia Disposition: 02 DC/TRF OTHER SHORT TERM HOS Condition: STABLE Referrals: SUPRIYA MATHEW (PCP) Problem Qualifiers WALTER CONNELLY MD Aug 05, 2020 15:45
[2020-08-05 16:18] VITALS: BP 88/36
== END 2020-08-05 18:30 | disposition short-term general hospital (02) ==
LOC: ER 12:33
DX: U07.1 COVID-19 (principal); J12.89 Other viral pneumonia; J96.91 Respiratory failure, unspecified with hypoxia; E11.22 Type 2 diabetes mellitus with diabetic chronic kidney disease; I12.0 Hypertensive chronic kidney disease with stage 5 chronic kidney disease or end stage renal disease; N18.6 End stage renal disease; Z87.891 Personal history of nicotine dependence; Z90.49 Acquired absence of other specified parts of digestive tract; Z90.710 Acquired absence of both cervix and uterus; Z88.8 Allergy status to other drugs, medicaments and biological substances
CPT/HCPCS: 36415; 71045; 80053; 83880; 84484; 85025; 87040; 96365; 96375; 99285; J0696; J1100

== ENCOUNTER 2020-08-28 05:47 | Emergency (ER) | payer MEDICARE, OTHER ==
[~2020-08-28] VITALS: Ht 154.9 cm; Wt 74.7 kg
--- NOTE | 2020-08-28 06:18 | RAD ---
CT head without contrast dated 08/28/2020. Comparison made to 07/23/2020. CLINICAL INDICATION: Seizures. TECHNIQUE: Contiguous axial imaging the head performed from skull base to vertex. No contrast administered. One or more of the following individualized dose reduction techniques were utilized for this examinat ion: 1. Automated exposure control 2. Adjustment of the mA and/or kV according to patient size 3. Use of iterative reconstruction technique. FINDINGS: Ventricles and sulci are within normal limits for age. No midline shift or mass effect. Brain parench yma is of normal attenuation. No hemorrhage or extra-axial collection. Posterior fossa and brainstem unremarkable. Visualized paranasal sinuses and mastoid air cells are clear. No apparent calvarial abnormality. IMPRESSION: No evidence of acute intracranial abnormality. Electronically signed by: Cody Sapp MD (08/28/2020 6:15 AM) JUL[facility]N
--- NOTE | 2020-08-28 06:58 | PHYS DOC ---
Past History Past Medical History: Anxiety, Diabetes, Hypertension, Renal Failure Additional Past Medical Histor: stg 5 renal failure (WALTER CONNELLY MD) Past Surgical History: Cholecystectomy, Hysterectomy, Other Additional Past Surgical Histo: LEFT CHEST PORT (WALTER CONNELLY MD) Smoking: Quit Greater Than 1 Year Alcohol Use: None Drug Use: None (WALTER CONNELLY MD) Adult General Chief Complaint Chief Complaint: SEIZURE HPI HPI Patient is a 30-year-old female with a past medical history of end-stage renal disease who presents to the emergency room after having multiple seizures at home. Patient does not have a history of seizures. She has been postictal since the event and has not been able to answer any questions. Upon my evaluat ion patient is lethargic but arousable. She does not answer questions for me at this time. She reportedly was unable to finish her peritoneal dialysis today. (WALTER CONNELLY MD) Review of Systems Review of Systems Unable to obtain (WALTER CONNELLY MD) Current Medications Current Medications Current Medications Medications (Trade) Dose Ordered Sig/Bisi Start Time Stop Time Status Last Admin Dose Admin Lorazepam (Ativan Inj) 1 mg 1X ONCE 08/28/20 06:15 08/28/20 06:17 DC 08/28/20 06:15 1 MG (WALTER CONNELLY MD) Allergies Allergies Allergies Coded Allergies Type Severity Reaction Last Updated Verified adhesive Allergy Unknown 07/23/20 Yes lurasidone Allergy Unknown 07/23/20 Yes zolpidem Allergy Unknown 07/23/20 Yes (WALTER CONNELLY MD) Physical Exam Physical Exam General: Awake, alert, NAD. Well Nourished, well hydrated. Cooperative HEENT: Atraumatic, EOMI, PERRL, airway patent, moist oral mucosa Neck: Supple, trachea midline Respiratory: CTA bilaterally, normal effort, no wheezing/crackles CV: tachycardia, no murmur, cap refill <2 GI: Soft, nondistended, nontender, no masses MSK: No obvious deformities Skin: Warm, dry, intact Neuro: minimal speech, movement in all extremities, unable to assess CN, no facial droop (WALTER CONNELLY MD) Current Patient Data Lab Results Laboratory Tests Test 08/28/20 06:18 Glucose (Fingerstick) 130 mg/dL (70-99) H (WALTER CONNELLY MD) Vital Signs Vital Signs Date Time Temp Pulse Resp B/P (MAP) Pulse Ox O2 Delivery O2 Flow Rate FiO2 08/28/20 07:00 107 15 108/57 (74) 100 Room Air 08/28/20 06:15 97.7 Lab Results Laboratory Tests Test 08/28/20 06:14 08/28/20 06:18 White Blood Count 6.3 x10^3/uL (4.0-11.0) Red Blood Count 3.42 x10^6/uL (3.50-5.40) Hemoglobin 10.2 g/dL (12.0-15.5) Hematocrit 31.4 % (36.0-47.0) Mean Corpuscular Volume 92 fL (79-100) Mean Corpuscular Hemoglobin 30 pg (25-35) Mean Corpuscular Hemoglobin Concent 33 g/dL (31-37) Red Cell Distribution Width 15.1 % (11.5-14.5) Platelet Count 249 x10^3/uL (140-400) Neutrophils (%) (Auto) 62 % (31-73) Lymphocytes (%) (Auto) 27 % (24-48) Monocytes (%) (Auto) 7 % (0-9) Eosinophils (%) (Auto) 0 % (0-3) Basophils (%) (Auto) 3 % (0-3) Neutrophils # (Auto) 3.9 x10^3uL (1.8-7.7) Lymphocytes # (Auto) 1.7 x10^3/uL (1.0-4.8) Monocytes # (Auto) 0.4 x10^3/uL (0.0-1.1) Eosinophils # (Auto) 0.0 x10^3/uL (0.0-0.7) Basophils # (Auto) 0.2 x10^3/uL (0.0-0.2) Sodium Level 135 mmol/L (136-145) Potassium Level 3.5 mmol/L (3.5-5.1) Chloride Level 93 mmol/L (98-107) Carbon Dioxide Level 22 mmol/L (21-32) Anion Gap 20 (6-14) Blood Urea Nitrogen 52 mg/dL (7-20) Creatinine 11.1 mg/dL (0.6-1.0) Estimated GFR (Cockcroft-Gault) 4.0 BUN/Creatinine Ratio 5 (6-20) Glucose Level 135 mg/dL (70-99) Calcium Level 6.0 mg/dL (8.5-10.1) Total Bilirubin 0.3 mg/dL (0.2-1.0) Aspartate Amino Transf (AST/SGOT) 38 U/L (15-37) Alanine Aminotransferase (ALT/SGPT) 35 U/L (14-59) Alkaline Phosphatase 194 U/L (46-116) Total Protein 5.8 g/dL (6.4-8.2) Albumin 1.7 g/dL (3.4-5.0) Albumin/Globulin Ratio 0.4 (1.0-1.7) Glucose (Fingerstick) 130 mg/dL (70-99) (JANNET AGARWAL DO) EKG EKG [] (WALTER CONNELLY MD) EKG EKG ordered and interpreted by myself at 0758 hrs. as sinus rhythm at 111 bpm, prolonged QTC at 479 otherwise unremarkable intervals, right axis deviation, no acute ischemic findings, no STEMI (JANNET AGARWAL DO) Radiology/Procedures Radiology/Procedures [] (WALTER CONNELLY MD) Radiology/Procedures XR CHEST 1V 08/28/2020 7:49 AM INDICATION: Seizure COMPARISON: 08/05/2020 TECHNIQUE: Portable frontal view of the chest is provided. FINDINGS: The cardiomediastinal silhouette is within normal limits. Bilateral perihilar interstitial changes are identified consistent with prior examination. Bandlike density within the lingula may represent atelectasis and/or scarring. Left chest wall infusion port catheter is in similar position. There are no significant pleural effusions. There is no pulmonary vascular congestion. No pneumothorax. No suspicious osseous abnormality. IMPRESSION: Similar patchy perihilar interstitial airspace disease as compared to prior examination. Consideration may be given for interstitial pneumonitis versus chronic interstitial changes. Electronically signed by: Anaya Rivas MD (08/28/2020 8:01 AM) DAVID CT head without contrast dated 08/28/2020. Comparison made to 07/23/2020. CLINICAL INDICATION: Seizures. TECHNIQUE: Contiguous axial imaging the head performed from skull base to vertex. No contrast administered. One or more of the following individualized dose reduction techniques were utilized for this examination: 1. Automated exposure control 2. Adjustment of the mA and/or kV according to patient size 3. Use of iterative reconstruction technique. FINDINGS: Ventricles and sulci are within normal limits for age. No midline shift or mass effect. Brain parenchyma is of normal attenuation. No hemorrhage or extra-axial collection. Posterior fossa and brainstem unremarkable. Visualized paranasal sinuses and mastoid air cells are clear. No apparent calvarial abnormality. IMPRESSION: No evidence of acute intracranial abnormality. Electronically signed by: Cody Sapp MD (08/28/2020 6:15 AM) [facility] (JANNET AGARWAL DO) Heart Score Risk Factors: Risk Factors: DM, Current or recent (<one month) smoker, HTN, HLP, family history of CAD, obesity. Risk Scores: Risk Factors: DM, Current or recent (<one month) smoker, HTN, HLP, family his tory of CAD, obesity. (WALTER CONNELLY MD) HEART Score for Chest Pain: HEART Score for Chest Pain Response (Comments) Value History Slighlty/Non-Suspicious 0 ECG Normal 0 Age < 45 0 Risk Factors >3 Risk Factors or Hx CAD 2 Troponin < Normal Limit 0 Total 2 Course & Med Decision Making Course & Med Decision Making Pertinent Labs and Imaging studies reviewed. (See chart for details) Patient presents to the Emergency Room with new onset seizures. Seizure work up was ordered. Patient given ativan here in the emergency room. CT head was negative. Patient discussed with Dr Agarwal who will assume. (WALTER CONNELLY MD) Course & Med Decision Making Comprehensive signout obtained from off going physician I reviewed patient's ER work-up so far. I personally saw patient and repeated certain aspects of history and physical exam. Patient appears to have fully recovered from postictal state and at baseline health. Besides known Covid infection greater than 1 month ago, patient denies any other changes in health. She is on peritoneal dialysis daily for uncontrolled type 2 diabetes. She confirms she is a DNR. She has never had any seizures in the past Seizures likely due to hypocalcemia versus albumin versus other. I discussed need for admission for further medical management and work-up as indicated. I discussed need for transfer with Dr. Gifford at [facility] who accepted patient under his care I updated patient on plan for transfer and she was amenable. Nonetheless, she spoke about case with her and later voiced her disagreement and plan for transfer and wanted to go home Notified by nurse that patient wishes to leave against medical advice. Had an extensive discussion with the patient regarding the risks of leaving AMA including but not limited to , permanent disability, and worsening condition. Pt acknowledged the risks and agreed to take full responsibility. Pt was A&Ox4 and had full medical decision making capacity when they signed the AMA sheet. Risks and Recommendations: The risks of refusing recommended care that were disclosed and acknowledged by the patient include loss of current lifestyle, per manent mental impairment, and . The recommended medical care being refused has been discussed with the patient and is to stay for continued monitoring, workup, and possible treatment. Discharge Care: The patient understands they are welcome to return to the hospital at any time to receive the recommended care or any other care at any time, regardless of their ability to pay for such care. Discharge instructions were provided to the patient. (JANNET AGARWAL DO) Dragon Disclaimer Dragon Disclaimer This electronic medical record was generated, in whole or in part, using a voice recognition dictation system. (WALTER CONNELLY MD) Departure Departure: Impression: Primary Impression: Seizure Additional Impressions: ESRD (end stage renal disease) Hypocalcemia Left against medical advice Disposition: AMA/ELOPED/LWBS Condition: STABLE Referrals: SUPRIYA MATHEW (PCP) Patient Instructions: Discharge Against Medical Advice, Seizure, Adult Additional Instructions: You have been evaluated in the Emergency Department today. You are refusing further testing, imaging, and further admission and choosing to leave against medical advice. You were advised of your risks of leaving and understand that permanent harm, or even , can occur from failing to follow the recommendations of the physician. Please follow up with your primary care physician and subsequent specialists [facility] to follow-up from your ER visit today Return to the Emergency Department immediately if you experience worsening or uncontrolled pain, persistent fevers, recurrent vomiting, blood in vomit, blood in stool, dark tarry stool, chest pain, shortness of breath, or for any other concerning symptoms. Problem Qualifiers WALTER CONNELLY MD Aug 28, 2020 06:58 JANNET AGARWAL DO Aug 28, 2020 07:47
[2020-08-28 07:29] LABS: CREATININE 11.1 mg/dL (0.6-1.0); POTASSIUM 3.5 mmol/L (3.5-5.1)
[2020-08-28 07:32] LABS: BASO # 0.2 x10^3/uL (0.0-0.2); BASO % 3 % (0-3); EOS % 0 % (0-3); HEMATOCRIT 31.4 % (36.0-47.0); HEMOGLOBIN 10.2 g/dL (12.0-15.5); LYMPH # 1.7 x10^3/uL (1.0-4.8); LYMPH % 27 % (24-48); MEAN CORPUSCULAR HEMOGLOBIN 30 pg (25-35); MEAN CORPUSCULAR HGB CONC 33 g/dL (31-37); MEAN CORPUSCULAR VOLUME 92 fL (79-100); MONO # 0.4 x10^3/uL (0.0-1.1); MONO % 7 % (0-9); NEUT # 3.9 x10^3uL (1.8-7.7); NEUT % 62 % (31-73); PLATELET COUNT 249 x10^3/uL (140-400); RED BLOOD COUNT 3.42 x10^6/uL (3.50-5.40); RED CELL DISTRIBUTION WIDTH 15.1 % (11.5-14.5); WHITE BLOOD COUNT 6.3 x10^3/uL (4.0-11.0)
[2020-08-28 07:35] LABS: ALBUMIN 1.7 g/dL (3.4-5.0); ALBUMIN/GLOBULIN RATIO 0.4 (1.0-1.7); TOTAL BILIRUBIN 0.3 mg/dL (0.2-1.0); TOTAL PROTEIN 5.8 g/dL (6.4-8.2)
--- NOTE | 2020-08-28 08:03 | RAD ---
XR CHEST 1V 08/28/2020 7:49 AM INDICATION: Seizure COMPARISON: 08/05/2020 TECHNIQUE: Portable frontal view of the chest is provided. FINDINGS: The cardiomediastinal silhouette is within normal limits. Bilateral perihilar interstitial changes ar e identified consistent with prior examination. Bandlike density within the lingula may represent ate lectasis and/or scarring. Left chest wall infusion port catheter is in similar position. There are no significant pleural effusions. There is no pulmonary vascular congestion. No pneumothora x. No suspicious osseous abnormality. IMPRESSION: Similar patchy perihilar interstitial airspace disease as compared to prior examination. Consideratio n may be given for interstitial pneumonitis versus chronic interstitial changes. Electronically signed by: Anaya Rivas MD (08/28/2020 8:01 AM) [facility]
[2020-08-28] MEDS ORDERED: ACETAMINOPHEN 325 MG TABLET PO ONE (08:45)
[2020-08-28] MEDS ORDERED: ONDANSETRON PF 4 MG/2 ML VIAL. IVP ONE (08:45)
[2020-08-28] MEDS ORDERED: CALCIUM CARBONATE 500 MG TAB.CHEW PO PRN (09:00)
[2020-08-28] MEDS ORDERED: HEPARIN PF 500 UNIT/5 ML DISP.SYRIN. IVP ONE (10:15)
[2020-08-28 10:19] LABS: % BASOS 0 % (0-3); % EOS 5 % (0-5); % LYMPHS 35 % (24-48); % MONOS 4 % (0-10); % SEGS 56 % (35-66)
[2020-08-28 10:20] LABS: ROULEAUX PRESENT
[2020-08-28 10:25] VITALS: BP 99/57
--- NOTE | 2020-08-28 12:22 | EKG ---
[address] [address] Test Date: 2020-08-28 Test Time: 07:53:59 Pat Name: ANGÉLICA PEÑALOZA Department: Room: Gender: F [employer]el St[employer]ener: TERESA : 1990 Requested By: JANNET AGARWAL Order Number: [id number] Reading MD: Measurements Intervals [place] Rate: 111 P: 0 MS: 108 QRS: 148 QRSD: 76 T: 150 QT: 350 QTc: 479 Interpretive Statements SINUS TACHYCARDIA ABNORMAL RIGHT AXIS DEVIATION LOW LIMB LEAD VOLTAGE ABNORMAL ECG RI6.02 No previous ECG available for comparison
[2020-08-28 12:55] LABS: PLT ESTIMATE ADEQUATE (ADEQUATE)
== END 2020-08-28 10:38 | disposition left against medical advice (07) ==
LOC: ER 05:47
DX: R56.9 Unspecified convulsions (principal); E11.22 Type 2 diabetes mellitus with diabetic chronic kidney disease; N18.6 End stage renal disease; E83.51 Hypocalcemia; F41.9 Anxiety disorder, unspecified; I10 Essential (primary) hypertension; Z90.49 Acquired absence of other specified parts of digestive tract; Z90.710 Acquired absence of both cervix and uterus; Z87.891 Personal history of nicotine dependence; Z88.8 Allergy status to other drugs, medicaments and biological substances
CPT/HCPCS: 36415; 70450; 71045; 80053; 82947; 85007; 85025; 93005; 96374; 96375; 99285; J2060; J2405